=== PATIENT | male | born 1970 | race Caucasian/White ===

== ENCOUNTER 2016-12-08 13:36 | Emergency (ER) | payer OTHER ==
[2016-12-08 14:21] LABS: ABSOLUTE BASOPHIL COUNT 0 /CUMM (0.0-0.2); ABSOLUTE EOSINOPHIL COUNT 0.2 /CUMM (0.0-0.7); ABSOLUTE LYMPH COUNT 1.5 /CUMM (1.2-3.4); ABSOLUTE MONOCYTE COUNT 0.6 /CUMM (0.10-0.60); BASOPHIL % 0.4 % (0.0-2.0); EOSINOPHIL % 2.6 % (0-5); GRANULOCYTE % 63.5 % (42.2-75.2); HEMATOCRIT 41.4 % (42-52); MEAN CORPUSCULAR HGB CONC 34.4 G/DL (33.0-37.0); MEAN CORPUSCULAR VOLUME 90.3 FL (80.0-94.0); MEAN PLATELET VOLUME 8.9 FL (7.4-10.4); PLATELET COUNT 237 /CUMM (130-400); RBC DISTRIBUTION WIDTH 12.9 % (11.5-14.5); RED BLOOD CELL CT 4.59 /CUMM (4.70-6.10); WHITE BLOOD CELL COUNT 6.3 /CUMM (4.8-10.8)
--- NOTE | 2016-12-08 14:42 | ED SYNCOPE COMPLAINT ---
History of Present Illness General Chief Complaint: General Adult Stated Complaint: PT FEELS WEAK/? SYNCOPE Source: patient, old records Exam Limitations: no limitations Vital Signs & Intake/Output Vital Signs & Intake/Output Vital Signs Date Time Temp Pulse Resp B/P B/P Pulse O2 O2 Flow FiO2 Mean Ox Delivery Rate 12/08 1532 96.9 60 16 112/74 94 Room Air 12/08 1458 Room Air Room Air 12/08 1400 97.6 75 20 116/73 97 Allergies Coded Allergies: Sulfa (Sulfonamide Antibiotics) (HIVES 12/08/16) Reconcile Medications Buspirone HCl 5 MG TABLET 1 TAB PO QPM MENTAL HEALTH (Reported) Butalb/Acetaminophen/Caffeine (Ewjbki-Lghawxhe-Lsgk 50-325-40) 50 MG-325 MG-40 MG TABLET 1 TAB PO BID PRN HEADACHE (Reported) Cyclobenzaprine HCl 5 MG TABLET 1.5 TAB PO DAILY SPASMS (Reported) Eletriptan HBr (Relpax) 40 MG TABLET 1 TAB PO DAILY PRN HEADACHE (Reported) Fluticasone Propionate (Flonase Allergy Relief) 50 MCG/ACTUATION SPRAY.SUSP 2 PUFF SOFIA DAILY PRN ALLERGIES (Reported) Loratadine (Claritin) 10 MG TABLET 1 TAB PO DAILY PRN ALLERGIES (Reported) Montelukast Sodium 10 MG TABLET 1 TAB PO DAILY ALLERGIES (Reported) Prochlorperazine Maleate 5 MG TABLET 1 TAB PO 4 TIMES/DAY PRN HEADACHE ( Reported) Propranolol HCl (Propranolol HCl ER) 80 MG CAP.SA.24H 1 CAP PO BID HEART ( Reported) Simvastatin (Simvastatin*) 20 MG TABLET 1 TAB PO DAILY CHOLESTEROL (Reported) Vilazodone Hydrochloride (Viibryd) 20 MG TABLET 1 TAB PO DAILY MENTAL HEALTH (Reported) Triage Note: PER PT WOKE UP THIS AM "NOT FEELING WELL"THIS NOON PROGRESSED TO NUMBNESS IN HANDS, PASSED OUT AND NOW FEELNAUSEOUS Triage Nurses Notes Reviewed? yes Timing: single episode today Precipitating Factors: none Associated Symptoms: denies HPI: 46-year-old male with history of migraines anxiety presents to ER for evaluation complaining of generalized malaise feeling tired for the past 2 days. He states that this morning he developed tingling in his hands which was nonradiating. He denies any known injury trauma. No neck or back pain no chest pain palpitations dizziness. No history of similar episodes in the past. He is not taken anything for symptoms. He is on propranolol for migraines and recently had his Flexeril increase to 2 tablets twice a day which she's been on for the past 2 days. He denies headache fever chills or rashes to the skin no modifying factors or associated symptoms otherwise. No change in his mental status per family Past History Travel History Traveled to [place] past 21 day No Medical History Any Pertinent Medical History? see below for history Neurological: MIGRAINES EENT: NONE Cardiovascular: CHOL Respiratory: NONE Gastrointestinal: NONE Hepatic: NONE Renal: NONE Musculoskeletal: NONE Psychiatric: anxiety Endocrine: NONE Surgical History Surgical History: none Psychosocial History What is your primary language Norwegian Tobacco Use: Never used Family History Hx Contributory? No Review of Systems Review of Systems Constitutional: Reports: see HPI. All Other Systems: Reviewed and Negative Comments Review of systems: See HPI, All other systems negative. Constitutional, no chills no fever, no malaise HEENT: No visual changes no sore throat no congestion Cardiovascular: No chest pain , no palpitation Skin: no rashes, no change in skin Respiratory: No dyspnea no cough no sputum GI: No nausea no vomiting, no diarrhea, : No dysuria Muscle skeletal: No joint pain, no back pain, no neck pain, Neurologic: No numbness no headache Psych: No stress Heme/endocrine: No bruising no bleeding Immunology: No lymphadenopathy Physical Exam Physical Exam General Appearance: well developed/nourished, alert, awake, anxious Cranial Nerves: normal hearing, normal speech, PERRL Comments: Well-developed well-nourished person in no acute distress HEENT: Normal EENT exam; PERRL, EOMI, no nystagmus. HEAD is atraumatic. moist mucous membranes. Neck: Supple, no lymphadenopathy, normal range of motion Back: Nontender, no CVA tenderness. Full range of motion Cardiovascular: Regular rate and rhythms no murmurs rubs Respiratory: Chest nontender.There were no bony deformities, no asymmetry. No respiratory distress. Patient speaking in full complete sentences. Breath sounds clear to auscultation bilaterally: NO W/R/R Abdomen: Soft, nontender nondistended Extremity: No edema, full range of motion of extremities, normal and equal pulses bilaterally, 5 out of 5 strength noted to bilateral upper and lower extremities Neuro: Alert oriented x3, motor sensory normal, cranial nerves II through XII grossly intact. There were no obvious focal neurologic abnormalities. Skin: No appreciable rash on exposed skin, skin is warm and dry. Psych: Mood and affect is normal, memory and judgment is normal. Core Measures ACS in differential dx? Yes CVA/TIA Diagnosis: No Severe Sepsis Present: No Septic Shock Present: No Progress Differential Diagnosis: AMI, aortic valve, hyperventilation, orthostatic syncope , pulmonary embolus, subarachnoid hem., TIA/CVA, electrolyte abnormality, dehdration, tick born illness Plan of Care: Orders Procedure Date/time Status Add-on Test (ER Only) 12/08 1517 Active TROPONIN LEVEL 12/08 1401 Complete LYME TITRE 12/08 1401 Active LIPASE 12/08 1401 Complete COMPREHENSIVE METABOLIC PANEL 12/08 1401 Complete CBC WITHOUT DIFFERENTIAL 12/08 1401 Complete AMYLASE 12/08 1401 Complete EKG 12/08 1338 Active Laboratory Tests 12/08/16 1415: Anion Gap 10, Estimated GFR > 60, BUN/Creatinine Ratio 13.3, Glucose 90, Calcium 9.2, Total Bilirubin 0.5, AST 22, ALT 45, Alkaline Phosphatase 54, Troponin I < 0.01, Total Protein 6.7, Albumin 4.2, Globulin 2.5, Albumin/Globulin Ratio 1.7, Amylase 65, Lipase 96, CBC w Diff NO MAN DIFF REQ, RBC 4.59 L, MCV 90.3, MCH 31.0, RDW 12.9, MPV 8.9, Gran % 63.5, Lymphocytes % 24.2, Monocytes % 9.3, Eosinophils % 2.6, Basophils % 0.4, Absolute Granulocytes 4.0, Absolute Lymphocytes 1.5, Absolute Monocytes 0.6, Absolute Eosinophils 0.2, Absolute Basophils 0, PUBS MCHC 34.4 12/08/16 1401: Lyme Disease Antibody Pending Labs ordered old records reviewed patient resting in no apparent distress at this time I discussed with the patient at length all of their results. I had an extensive conversation regarding need for close follow up with their primary care physician this week as well as return precautions. I answered all of their questions, they feel comfortable with the plan and follow-up care. (RUDDY GERARD,ANDREW) Departure Departure Time of Disposition: 1520 Disposition: HOME OR SELF CARE Condition: Stable Clinical Impression Primary Impression: Hand paresthesia Referrals: CORTEZ LAUREN,MARQUISE (PCP) Additional Instructions: Follow-up with your primary care physician on Sunday, return to the ER anytime sooner if your symptoms worsen or you have any other concerns. Departure Forms: Customer Survey General Discharge Information
[2016-12-08] MEDS ORDERED: CLARITIN10 M1 PO (15:03)
[2016-12-08] MEDS ORDERED: BUTALB-ACETAMI1 EACH PO (15:03)
[2016-12-08] MEDS ORDERED: BUSPIRONE HCL5 M1 PO (15:03)
[2016-12-08] MEDS ORDERED: CYCLOBENZAPRINE5 M2 PO (15:04)
[2016-12-08] MEDS ORDERED: PROCHLORPERAZINE5 M2 PO (15:04)
[2016-12-08] MEDS ORDERED: FLONASE ALLERG9.9 ML NAS (15:05)
[2016-12-08] MEDS ORDERED: RELPAX40 M1 PO (15:05)
[2016-12-08] MEDS ORDERED: PROPRANOLOL HCL80 M2 PO (15:05)
[2016-12-08] MEDS ORDERED: SIMVASTATIN20 M2 PO (15:06)
[2016-12-08] MEDS ORDERED: MONTELUKAST SOD10 M1 PO (15:06)
[2016-12-08] MEDS ORDERED: VIIBRYD20 M1 PO (15:06)
[2016-12-08 15:32] VITALS: BP 112/74
== END 2016-12-08 15:33 ==
LOC: ERH 13:36
PROVIDERS: Emergency Medicine
DX: R20.2 Paresthesia of skin (principal)
CPT/HCPCS: 86618; 93005; 93010